=== PATIENT | female | born 1960 | race Caucasian/White ===

== ENCOUNTER → 2021-01-16 | Day surgery (SDC) | payer OTHER ==
[~2021-01-16] VITALS: Ht 162.6 cm; Wt 99.8 kg
[~2021-01-16] MED LIST: ALAVERT10 MG PO; AMLODIPINE BESYL5 MG PO; LIPITOR20 MG PO; LISINOPRIL40 MG PO; PRILOSEC20 MG PO; UNISOM50 MG PO; VENTOLIN HFA IN18 GM INH
== END | disposition home or self-care (01) ==
LOC: FAS 08:45
DX: Z12.11 Encounter for screening for malignant neoplasm of colon (principal); K63.5 Polyp of colon; K57.30 Diverticulosis of large intestine without perforation or abscess without bleeding; I10 Essential (primary) hypertension; J45.909 Unspecified asthma, uncomplicated; K21.9 Gastro-esophageal reflux disease without esophagitis; E78.5 Hyperlipidemia, unspecified; G47.00 Insomnia, unspecified; E66.3 Overweight; Z88.8 Allergy status to other drugs, medicaments and biological substances; Z79.899 Other long term (current) drug therapy; Z87.891 Personal history of nicotine dependence
CPT/HCPCS: J2250; J2704; J7120